=== PATIENT | female | born 1950 | race Caucasian/White ===

== ENCOUNTER → 2016-08-29 | Outpatient (CLI) | payer OTHER, MEDICARE | LOC: CIMAGING 14:41 | PROVIDERS: ATTEND Family Medicine | DX: R22.2 Localized swelling, mass and lump, trunk (principal); M41.86 Other forms of scoliosis, lumbar region; M51.36 Other intervertebral disc degeneration, lumbar region; M16.12 Unilateral primary osteoarthritis, left hip; Z98.1 Arthrodesis status | CPT/HCPCS: 72100-PO ==

== ENCOUNTER 2016-09-29 06:41 | Day surgery (SDC) | payer OTHER, MEDICARE ==
[~2016-09-29 06:41] MED LIST: CLINDAMYCIN 900 MG/DEXTROSE 50 ML IV ONE; LIDOCAINE 1% 2 ML INJ ONE; LR 1,000 ML IV SCH
--- NOTE | 2016-09-29 07:11 | PDHPUP ---
History & Physical Update H&P update statement: This history and physical update is based on an assessment of the patient which was completed after admission or registration (within 24 hours), but prior to the surgery/procedure.
[2016-09-29] MEDS ORDERED: ONDANSETRON DISINTEGRATING 4 MG TAB PO PRN (07:13)
[2016-09-29] MEDS ORDERED: HYDROCODONE/APAP 5/325 TAB PO PRN (07:13)
[2016-09-29] MEDS ORDERED: BUPIVACAINE 0.5% 30 ML SDV ONE (07:43)
[2016-09-29] MEDS ORDERED: LIDOCAINE 1% 5 ML SDV ID PRN (07:43)
[2016-09-29] MEDS ORDERED: MIDAZOLAM 2 MG/2 ML VIAL IVP ONE (08:06)
--- NOTE | 2016-09-29 08:08 | PDANEPAE ---
ANE History of Present Illness Pt presents for surgery. ANE Past Medical History - Cardiovascular History Hx Hypertension: No Hx Arrhythmias: No Hx Chest Pain: No Hx Coronary Artery / Peripheral Vascular Disease: No Hx CHF / Valvular Disease: No Hx Palpitations: No - Pulmonary History Hx COPD: No Hx Asthma/Reactive Airway Disease: No Hx Recent Upper Respiratory Infection: No Hx Oxygen in Use at Home: No - Neurologic History Hx Cerebrovascular Accident: No Hx Seizures: No Hx Dementia: No - Endocrine History Hx Diabetes: No - Renal History Hx Renal Disorders: No - Liver History Hx Hepatic Disorders: No - Neurological & Psychiatric Hx Hx Neurological and Psychiatric Disorders: Yes - Cancer History Hx Cancer: No - Congenital Disorder History Hx Congenital Disorders: No - GI History Hx Gastrointestinal Disorders: No - Chronic Pain History Chronic Pain: Yes (BACK PAIN) ANE Review of Systems - Exercise capacity Exercise capacity: >=4 METS METS (RN): 4 METS ANE Patient History - Allergies Allergies/Adverse Reactions: Penicillins Allergy (Intermediate, Verified 12/23/12 08:11) Rash - Home Medications Home Medications: Ibuprofen 800 mg PO BID 12/22/12 [Last Taken 09/28/16 09:00] Duloxetine HCl 09/28/16 [Last Taken 09/22/16 06:00] - NPO status NPO Since - Liquids (Date): 09/28/16 NPO Since - Liquids (Time): 22:00 NPO Since - Solids (Date): 09/28/16 NPO Since - Solids (Time): 17:00 - Smoking Hx Smoking Status: Former smoker - Family Anes Hx Family Hx Anesthesia Complications: NEG ANE Labs/Vital Signs - Vital Signs Blood Pressure: 147/102 Heart Rate: 96 Respiratory Rate: 18 O2 Sat (%): 84 Height: 167.64 cm Weight: 90.718 kg ANE Physical Exam - Airway Neck exam: FROM Mallampati Score: Class 2 Mouth exam: small mouth opening - Pulmonary Pulmonary: no respiratory distress - Cardiovascular Cardiovascular: regular rate and rhythym - ASA Status ASA Status: II ANE Anesthesia Plan Anesthesia Plan: general endotracheal anesthesia (RBA discussed.)
[2016-09-29] MEDS ORDERED: DEXAMETHASONE 4 MG/ML VIAL ONE (08:12)
[2016-09-29] MEDS ORDERED: PROPOFOL 200 MG/20 ML VIAL ONE (08:12)
[2016-09-29] MEDS ORDERED: ROCURONIUM 50 MG/5 ML VIAL ONE (08:12)
[2016-09-29] MEDS ORDERED: fentaNYL 100 MCG/2 ML INJ ONE ×3 (08:12→09:55)
[2016-09-29] MEDS ORDERED: SUCCINYLCHOLINE CHLORIDE*ANESTHESIA ONLY*200 MG/10 ML SYR IVP ONE (08:12)
[2016-09-29] MEDS ORDERED: ONDANSETRON 4 MG/2 ML VIAL ONE (08:13)
[2016-09-29] MEDS ORDERED: PROMETHAZINE HCL 25 MG/ML INJ IVP PRN (09:04)
[2016-09-29] MEDS ORDERED: NALOXONE HCL 0.4 MG/ML INJ IVP PRN (09:04)
[2016-09-29] MEDS ORDERED: OXYCODONE/APAP 5/325 TAB PO PRN (09:04)
[2016-09-29] MEDS ORDERED: ACETAMINOPHEN 500 MG TAB PO PRN (09:04)
[2016-09-29] MEDS ORDERED: SUGAMMADEX SODIUM 200 MG/2 ML VIAL IVP ONE (09:22)
[2016-09-29] MEDS ORDERED: LABETALOL HCL 5 MG/ML 20 ML MDV IVP PRN (09:55)
[2016-09-29] MEDS: fentaNYL 100 MCG/2 ML INJ IVP PRN ×2 (09:56→10:02)
--- NOTE | 2016-09-29 09:56 | POSTANESTH ---
Post Anesthetic Evaluation Cardiovascular Status: Normal, Stable Respiratory Status: Normal, Stable Level of Consciousness/Mental Status: Can Participate in Eval Pain Control: Adequate, Prn Tx Ordered Nausea/Vomiting Control: Adequate, Prn Tx Ordered Complications Possibly Related to Anesthesia: None Noted
[2016-09-29 10:19] VITALS: PULSE 85
[2016-09-29 10:30] VITALS: RESP 16
[2016-09-29 10:41] VITALS: TEMP 97.7
[2016-09-29 11:09] VITALS: BP 125/83; O2SAT 97
--- NOTE | 2016-09-29 12:42 | POSTOPPROG ---
Post Op Note Date of Operation: 09/29/16 Surgeon: Heber Whitehead Lithographic Proofer: Thomas Diaz Anesthesiologist: Dr Melton Anesthesia: GET(General Endotracheal) Pre-op Diagnosis: back mass Post-op Diagnosis: same Indication: pain Procedure: excision of back mass Findings: mass extending into hardware with significant fluid Inf/Abcess present in the surg proc area at time of surgery?: No EBL: 50-100 Drains: Luisito Ty Specimen(s): capsule, cultures taken
== END 2016-09-29 11:29 | disposition home or self-care (01) ==
LOC: FSGY 06:41
PROVIDERS: ATTEND Surgery
PROC: 0JB70ZX Excision of Back Subcutaneous Tissue and Fascia, Open Approach, Diagnostic (ICD-10-PCS; principal; 2016-09-29 08:15)
DX: M71.38 Other bursal cyst, other site (principal)
CPT/HCPCS: J0330; J1100; J2250; J2405; J2704; J3010

== ENCOUNTER 2016-11-10 10:19 | Inpatient (IN) | payer OTHER, MEDICARE ==
[2016-11-10 12:20] LABS: % IMMATURE GRANULYOCYTES 0.2 % (0.0-1.1); ABSOLUTE IMMATURE GRANULOCYTES 0.01 10^3/uL (0.00-0.10); ADD DIFF? NO; ADD MORPH? NO; ADD SCAN? NO; ATYPICAL LYMPHOCYTE FLAG 10 (0-99); FRAGMENT RBC FLAG 0 (0-99); HEMATOCRIT 48.7 % (38.0-47.0); HEMOGLOBIN 15.7 g/dL (12.6-16.3); LEFT SHIFT FLG 0 (0-99); LIPEMIA HEMOLYSIS FLAG 80 (0-99); MEAN CELL HEMOGLOBIN 27.6 pg (27.9-34.1); MEAN CELL HEMOGLOBIN CONCENTR. 32.2 g/dL (32.4-36.7); MEAN CELL VOLUME 85.6 fL (81.5-99.8); MEAN PLATELET VOLUME 11.7 fL (8.7-11.7); PLATELET CLUMPS FLAG 0 (0-99); PLATELET COUNT 200 10^3/uL (150-400); RED BLOOD CELL COUNT 5.69 10^6/uL (4.18-5.33); RED CELL DISTRIBUTION WIDTH 14.8 % (11.5-15.2)
--- NOTE | 2016-11-10 12:40 | EDPHY ---
H & P Stated Complaint: surgical incision pain/swelling increasing last few days Time Seen by Provider: 11/10/16 11:17 HPI/ROS: CHIEF COMPLAINT: Back pain HISTORY OF PRESENT ILLNESS: 66-year-old female presents emergency department with worsening low back pain. Patient had a lumbar fusion with hardware in 1989 , she developed an infected seroma and had it drained surgically by Dr. Whitehead 1 month ago. Patient has been seeing Dr. Paniagua. He sent her to see Infectious Disease 2 weeks ago. They placed her on doxycycline. Patient reports Paco-Tahir was out of this so she did not started until 1 week ago. Patient reports no pain initially after surgery, she says over the last week she has had increased pain in her low back, worse with movement, worse with standing. Patient denies fevers or chills, no loss of control of her bowel or bladder, no saddle anesthesias, no leg weakness. REVIEW OF SYSTEMS: A comprehensive 10 point review of systems is otherwise negative aside from elements mentioned in the history of present illness. Source: Patient, Old records Exam Limitations: No limitations - Personal History Current Tetanus/Diphtheria Vaccine: Yes Current Tetanus Diphtheria and Acellular Pertussis (TDAP): Yes Tetanus Vaccine Date: 2009 - Medical/Surgical History Hx Asthma: No Hx Chronic Respiratory Disease: No Hx Diabetes: No Hx Cardiac Disease: No Hx Renal Disease: No Hx Cirrhosis: No Hx Alcoholism: No Hx HIV/AIDS: No Hx Splenectomy or Spleen Trauma: No Other PMH: Lumbar fusion, mass removed near lumbar fusion, R hip replacement - Social History Smoking Status: Former smoker - Physical Exam Exam: Physical Exam Gen: Alert and Oriented, NAD HEENT: PERRL, moist mucous membranes NECK: no meningismus CV: regular rate and regular rhythm PULM: CTAB, no wheezes ABDOMEN: soft, non tender to palpation, BS present BACK: Midline lumbar incision clothes, no drainage, no erythema, fluctuance noted under incision NEURO: Neurologically grossly intact EXTREMITIES: normal appearing SKIN: no rash or break in skin on exposed skin PSYCH: answers questions appropriately. Constitutional: Initial Vital Signs Temperature (C) 36.5 C 11/10/16 10:25 Heart Rate 71 11/10/16 10:25 Respiratory Rate 17 11/10/16 10:25 Blood Pressure 173/95 H 11/10/16 10:25 O2 Sat (%) 94 11/10/16 10:25 O2 Delivery Mode Room Air Allergies/Adverse Reactions: Penicillins Allergy (Intermediate, Verified 11/10/16 10:25) Rash Home Medications: Medication Instructions Recorded Ibuprofen 800 mg PO BID 12/22/12 Duloxetine HCl 09/28/16 Doxycycline Calcium 11/10/16 Medical Decision Making ED Course/Re-evaluation: IV established, CBC, chemistry panel, blood cultures, CRP ordered. Neurosurgery PA is down seeing patient, plan is to take her to the operating room now with Dr. Richmond - Data Points Laboratory Results: Laboratory Results 11/10/16 11:31 11/10/16 11/10/16 11:31 11:31 WBC 5.35 10^3/uL 10^3/uL (3.80-9.50) RBC 5.69 10^6/uL H 10^6/uL (4.18-5.33) Hgb 15.7 g/dL g/dL (12.6-16.3) Hct 48.7 % H % (38.0-47.0) MCV 85.6 fL fL (81.5-99.8) MCH 27.6 pg L pg (27.9-34.1) MCHC 32.2 g/dL L g/dL (32.4-36.7) RDW 14.8 % % (11.5-15.2) Plt Count 200 10^3/uL 10^3/uL (150-400) MPV 11.7 fL fL (8.7-11.7) Neut % (Auto) 58.3 % % (39.3-74.2) Lymph % (Auto) 27.1 % % (15.0-45.0) Quay % (Auto) 7.3 % % (4.5-13.0) Eos % (Auto) 5.6 % % (0.6-7.6) Baso % (Auto) 1.5 % % (0.3-1.7) Nucleat RBC Rel Count 0.0 % % (0.0-0.2) Absolute Neuts (auto) 3.12 10^3/uL 10^3/uL (1.70-6.50) Absolute Lymphs (auto) 1.45 10^3/uL 10^3/uL (1.00-3.00) Absolute Monos (auto) 0.39 10^3/uL 10^3/uL (0.30-0.80) Absolute Eos (auto) 0.30 10^3/uL 10^3/uL (0.03-0.40) Absolute Basos (auto) 0.08 10^3/uL 10^3/uL (0.02-0.10) Absolute Nucleated RBC 0.00 10^3/uL 10^3/uL (0-0.01) Immature Gran % 0.2 % % (0.0-1.1) Immature Gran # 0.01 10^3/uL 10^3/uL (0.00-0.10) Sodium Pending Potassium Pending Chloride Pending Carbon Dioxide Pending Anion Gap Pending BUN Pending Creatinine Pending Estimated GFR Pending Glucose Pending Calcium Pending C-Reactive Protein Pending Departure - Departure Disposition: To OP Cath/Surgery Clinical Impression: Wound infection complicating hardware Qualifiers: Encounter type: initial encounter Qualified Code(s): T84.7XXA - Infection and inflammatory reaction due to other internal orthopedic prosthetic devices, implants and grafts, initial encounter Condition: Fair Referrals: Yuni Jackson MD [Primary Care Provider] - As per Instructions
[2016-11-10 13:36] LABS: ANION GAP 12 mEq/L (8-16); CALCIUM 8.8 mg/dL (8.5-10.4); CARBON DIOXIDE 21 mEq/l (22-31); CHLORIDE 112 mEq/L (97-110); CREATININE 0.6 mg/dL (0.6-1.0); GLOMERULAR FILTRATION RATE > 60; GLUCOSE 81 mg/dL (70-100); POTASSIUM 4.6 mEq/L (3.5-5.2); SODIUM 145 mEq/L (134-144)
--- NOTE | 2016-11-10 14:16 | GHP ---
[f rep st] PREOP HISTORY AND PHYSICAL DATE OF ADMISSION: 11/10/2016 CHIEF COMPLAINT: Back pain. HISTORY OF PRESENT ILLNESS: The patient is a 66-year-old female who underwent an L4-S2 instrumentat ion and fusion by Dr. Matos in 1993. There were no complications with the surgery. In early 2016, s he developed worsening back pain and a fluid collection. She was taken the operating room by Dr. Celina guerra, where she was found to have some lumbosacral paraspinal abscess. Cultures were taken that show ed Propionibacterium acnes. She was treated with originally Keflex and was switched to doxycycline per Infectious Disease. She presented to the emergency department today with worsening back pain. She describes pain in her low back with a worsening fluid collection. This is not associated with a ny leg pain, weakness, paresthesias, ataxia, or bowel or bladder problems. She has not had fevers o r chills. PAST MEDICAL HISTORY: 1. Osteoarthritis. 2. Depression. CURRENT MEDICATIONS: Cymbalta. PAST SURGICAL HISTORY: Includes: 1. Lumbar fusion. 2. Evacuation of paraspinal abscess. ALLERGIES: Penicillin which causes a rash. FAMILY HISTORY: Patient has no family history of spine problems. SOCIAL HISTORY: Patient is with grown children. She does not smoke, does drink alcohol soc ially, and denies recreational drug use. REVIEW OF SYSTEMS: Negative. PHYSICAL EXAM: GENERAL: Patient is a 66-year-old female lying in bed, in no apparent distress. HE ENT: Head, eyes, ears, nose, and throat are negative for drainage. EXTREMITIES: Calion, warm, and d ry. NEUROLOGICAL: Patient is awake, alert, oriented x4. Pupils equal, round, reactive to light. Extraocular motions are intact. There is no evidence of facial droop. Tongue and uvula are midline . Spinal accessory muscles are intact. Her motor strength is 5/5 in her arms and legs. Her sensat ion is grossly intact to light touch in her arms and legs. Deep tendon reflexes are 1+/4 in the yolanda ateral biceps, triceps, brachioradialis, patellar, and Achilles. There is a negative Prieto's wit h no clonus. SKIN: She has a palpable fluid collection near the inferior portion of her incision n ear the upper portion of her sacrum. DIAGNOSTIC STUDIES: CBC from [facility] on 11/10/2016 shows a white blood cell coun t of 5.35, hemoglobin of 15.7, and platelet count of 200. A CT scan from [facility] on 11/09/2016 shows postoperative changes from her previous L4-S2 instrumentation and fusion. There is a significant amount of metallic artifact from the hardware. There is evidence of a posterior paraspinal fluid collection dorsal from L4 down through approximate ly S2-3. This is suspicious for a paraspinal abscess. IMPRESSION: This is a 66-year-old female with a history of a previous Propionibacterium acnes anh ester abscess with worsening low back pain and a CT scan from 10/10/2016 that shows a postoperative paraspinal fluid collection suspicious for an abscess. She is neurologically stable. PLAN: All the above discussed in detail with the patient, her , and daughter. This patient was seen and examined by Dr. Paniagua in the emergency department. At this point in time, in l ight of her worsening back pain and her imaging findings consistent with a paraspinal abscess, we re commended that she consider surgical removal of her hardware with evacuation of the paraspinal absce ss. The risks of surgery include, but are not limited to bleeding, infection, neurological injury, cerebrospinal fluid leak, vascular injury, and the risk of ongoing symptoms postoperatively. She is set up with the appropriate presurgical paperwork and all questions are answered in detail. We jersey madden keep her n.p.o. and plan for surgical removal of her hardware this afternoon with evacuation of he r abscess. Please call with any neurological changes. /[id number]/MODL
[2016-11-10] MEDS ORDERED: MIDAZOLAM 2 MG/2 ML VIAL ONE (16:16)
[2016-11-10] MEDS ORDERED: MIDAZOLAM 2 MG/2 ML VIAL IVP ONE (16:18)
--- NOTE | 2016-11-10 16:18 | PDANEPAE ---
ANE History of Present Illness Patient presents for hardware removal and back I and D. ANE Past Medical History - Cardiovascular History Hx Hypertension: No Hx Arrhythmias: No Hx Chest Pain: No Hx Coronary Artery / Peripheral Vascular Disease: No Hx CHF / Valvular Disease: No Hx Palpitations: No - Pulmonary History Hx COPD: No Hx Asthma/Reactive Airway Disease: No Hx Recent Upper Respiratory Infection: No Hx Oxygen in Use at Home: No Hx Sleep Apnea: No - Neurologic History Hx Cerebrovascular Accident: No Hx Seizures: No Hx Dementia: No - Endocrine History Hx Diabetes: No - Renal History Hx Renal Disorders: No - Liver History Hx Hepatic Disorders: No - Neurological & Psychiatric Hx Hx Neurological and Psychiatric Disorders: Yes Neurological / Psychiatric History Comment: ANXIETY & DEPRESSION - Cancer History Hx Cancer: No - Congenital Disorder History Hx Congenital Disorders: No - GI History Hx Gastrointestinal Disorders: No - Other Health History Other Health History: NEG - Chronic Pain History Chronic Pain: Yes (BACK PAIN) - Surgical History Prior Surgeries: R JONY 1994. SPINAL FUSION 1993. HIP SURG CHILDHOOD ANE Review of Systems - Exercise capacity Exercise capacity: >=4 METS ANE Patient History - Allergies Allergies/Adverse Reactions: Penicillins Allergy (Intermediate, Verified 11/10/16 10:25) Rash - Home Medications Home medications: home medication list seen and reviewed Home Medications: DULoxetine [Cymbalta 60 MG (*)] 60 mg PO DAILY #0 09/28/16 [Last Taken 11/10/16 ] Cholecalciferol Vit D3 [Vitamin D3 (*)] 5,000 units PO Q3D 11/10/16 [Last Taken 11/08/16] Doxycycline Hyclate [Vibramycin 100 MG (*)] 100 mg PO DAILY 11/10/16 [Last Taken 11/09/16] Ibuprofen [Motrin (*)] 800 mg PO BID PRN 11/10/16 [Last Taken 11/09/16 09:00] - NPO status NPO Status: no food or drink >8 hours NPO Since - Liquids (Date): 11/10/16 NPO Since - Liquids (Time): 08:30 NPO Since - Solids (Date): 11/09/16 - Anes Hx Anes Hx: no prior problems - Smoking Hx Smoking Status: Former smoker - Family Anes Hx Family Hx Anesthesia Complications: NEG ANE Labs/Vital Signs - Labs Result Diagrams: 11/10/16 11:31 11/10/16 13:10 - Vital Signs Blood Pressure: 159/96 Heart Rate: 71 Respiratory Rate: 18 O2 Sat (%): 93 Height: 167.64 cm Weight: 90.718 kg ANE Physical Exam - Airway Neck exam: FROM Mallampati Score: Class 2 Mouth exam: dentures - Pulmonary Pulmonary: no respiratory distress - Cardiovascular Cardiovascular: regular rate and rhythym - ASA Status ASA Status: II ANE Anesthesia Plan Anesthesia Plan: general endotracheal anesthesia (RBA discussed)
[2016-11-10] MEDS ORDERED: fentaNYL 100 MCG/2 ML INJ ONE (16:22)
[2016-11-10] MEDS ORDERED: PROPOFOL 200 MG/20 ML VIAL ONE (16:24)
[2016-11-10] MEDS ORDERED: PROPOFOL/EMULSION 500 MG/50 ML BOTTLE IV ONE (16:24)
[2016-11-10] MEDS ORDERED: HYDROmorphONE/DILAUDID 2 MG/ML INJ ONE (16:58)
[2016-11-10] MEDS ORDERED: ROCURONIUM 50 MG/5 ML VIAL ONE (16:58)
[2016-11-10] MEDS ORDERED: PHENYLEPHRINE HCL 100 MCG/ML SYR ONE (17:04)
[2016-11-10] MEDS ORDERED: DEXAMETHASONE 4 MG/ML VIAL ONE (17:20)
[2016-11-10] MEDS ORDERED: ONDANSETRON 4 MG/2 ML VIAL ONE (17:20)
[2016-11-10] MEDS ORDERED: VANCOMYCIN 1.5 GM in D5W 250 ML IV ONE (17:30)
[2016-11-10] MEDS ORDERED: fentaNYL 100 MCG/2 ML INJ IVP PRN (17:36)
[2016-11-10] MEDS ORDERED: LR 500 ML IV PRN (17:36)
[2016-11-10] MEDS ORDERED: HYDROmorphONE/DILAUDID 1 MG/ML SYR IVP PRN (17:36)
[2016-11-10] MEDS ORDERED: NALOXONE HCL 0.4 MG/ML INJ IVP PRN ×2 (17:36→18:41)
[2016-11-10] MEDS ORDERED: ONDANSETRON 4 MG/2 ML VIAL IVP PRN ×2 (17:36→18:41)
[2016-11-10] MEDS ORDERED: epHEDrine SULFATE 10 MG/ML SYR ONE ×2 (18:13)
[2016-11-10] MEDS ORDERED: SUGAMMADEX SODIUM 200 MG/2 ML VIAL IVP ONE (18:13)
[2016-11-10] MEDS ORDERED: MAGNESIUM HYDROXIDE 30 ML UDCUP PO PRN (18:41)
[2016-11-10] MEDS ORDERED: METHOCARBAMOL 750 MG TAB PO PRN (18:41)
[2016-11-10] MEDS ORDERED: ONDANSETRON DISINTEGRATING 4 MG TAB PO PRN (18:41)
[2016-11-10] MEDS ORDERED: LACTULOSE 20 GM/30 ML UDCUP PO PRN (18:41)
[2016-11-10] MEDS ORDERED: morphINE PCA 30 MG/30 ML PCA IV PRN (18:41)
[2016-11-10] MEDS ORDERED: diphenhydrAMINE 25 MG CAP PO PRN (18:41)
[2016-11-10] MEDS ORDERED: BISACODYL 10 MG SUPP PR PRN (18:41)
[2016-11-10] MEDS ORDERED: NS 1,000 ML IV SCH (18:45)
--- NOTE | 2016-11-10 18:46 | SOAPPROG ---
SOAP Progress Note Assessment/Plan: Assessment: 66 yo F sp L4-S2 hardware removal and incision/drainage of paraspinal abscess Plan: stable on vanco/ancef PT/OT Giovani x 1 ID consult in am please call with neuro changes 11/10/16 18:44 Subjective: + back pain, no leg pain. Objective: Vital Signs Temp Pulse Resp BP Pulse Ox 36.1 C 71 18 159/96 H 93 11/10/16 12:56 11/10/16 16:17 11/10/16 16:17 11/10/16 16:17 11/10/16 16:17 Laboratory Results 11/10/16 13:10 somnolent PERRL, no facial droop PARUL x 4 + light touch ICD10 Worksheet Patient Problems: Problems Problem Status Onset Wound infection complicating hardware Acute
--- NOTE | 2016-11-10 18:57 | GOP ---
[f rep st] OPERATIVE REPORT DATE OF OPERATION: 11/10/2016 SURGEON: Erlin Paniagua MD MILL SET UP: ORALIA Golden. ANESTHESIA: General endotracheal. PREOPERATIVE DIAGNOSIS: Deep lumbar spine abscess/wound infection. Status post prior multilevel po sterior segmental instrumented fusion. POSTOPERATIVE DIAGNOSIS: Deep lumbar spine abscess/wound infection. Status post prior multilevel p osterior segmental instrumented fusion. PROCEDURE PERFORMED: 1. Removal of posterior segmental instrumentation from approximately L4 to S2. 2. Incision and drainage of deep lumbar wound infection/abscess. FINDINGS: ESTIMATED BLOOD LOSS: 200 cc INDICATIONS: The patient is a 66-year-old woman who presented with a lump on her back to Dr. David Whitehead, who incised the lump, saw a cyst to drain, and found a pus pocket communicating with lumbar hardware. He referred her to me and after a detailed discussion with the infectious disease folks and Dr. Whitehead, and the patient, we felt that it was in her best interest to re-drain the abscess and remove all the hardware. DESCRIPTION OF PROCEDURE: After informed consent was obtained, the patient was taken to the operati ng room and placed in the prone position on Luisito table. The lumbosacral area was prepped and tamera ped in a sterile fashion. After fluoroscopic localization of the correct level, the subcutaneous an d intramuscular tissues were infiltrated with local anesthesia. A midline linear incision was then created from approximately L4 through S2. This was carried down to the fascial layer, which was the n incised using monopolar electrocautery and carried in a subperiosteal plane along the spinous proc esses, the top of the construct and down to the lamina. Note that a very large pocket of serosangui neous fluid was identified at the inferior aspect of the hardware, communicating with the hardware a nd it was under great pressure, and when it was incised, it squirted approximately a [id number] into the air. The area was copiously irrigated with antibiotic irrigation and debrided, and the in strumentation was painstakingly removed, piece by piece. All of the connections were very archaic a nd needed to be taken apart, piece by piece, and the wyatt needed to be severed in multiple places. S ome of these places we could get to with a door cutter, but some of them required a wyatt-cutting bur. Eventually, we were able to remove every piece of hardware which was confirmed on fluoroscopy, and t he wound was copiously irrigated with antibiotic irrigation and debrided. A drain was then placed a nd the wound was closed in a layered fashion using interrupted Vicryl sutures followed by Steri-Stri ps on the skin. COMPLICATIONS: None. DISPOSITION: The patient is currently in the process of being repositioned for extubation. /[id number]/MODL
[2016-11-10 19:55] VITALS: RESP 16
[2016-11-10] MEDS ORDERED: CEFEPIME HCL 2 GM in D5W 100 ML IV SCH (21:00)
[2016-11-10] MEDS: FAMOTIDINE 20 MG TAB PO SCH (21:36)
[2016-11-10] MEDS: SENNOSIDES/DOCUSATE SODIUM TAB PO SCH (21:36)
[2016-11-10] MEDS: POLYETHYLENE GLYCOL 3350 17 GM PKT PO SCH (21:36)
[2016-11-10] MEDS: ACETAMINOPHEN 500 MG TAB PO SCH (21:36)
[2016-11-11] MEDS: oxyCODONE IR 5 MG TAB PO PRN ×4 (03:52→17:04)
[2016-11-11 04:53] LABS: % IMMATURE GRANULYOCYTES 0.2 % (0.0-1.1); ABSOLUTE IMMATURE GRANULOCYTES 0.02 10^3/uL (0.00-0.10); ADD DIFF? NO; ADD MORPH? NO; ADD SCAN? NO; ATYPICAL LYMPHOCYTE FLAG 0 (0-99); FRAGMENT RBC FLAG 0 (0-99); HEMATOCRIT 42.4 % (38.0-47.0); HEMOGLOBIN 13.7 g/dL (12.6-16.3); LEFT SHIFT FLG 0 (0-99); LIPEMIA HEMOLYSIS FLAG 80 (0-99); MEAN CELL HEMOGLOBIN 27.8 pg (27.9-34.1); MEAN CELL HEMOGLOBIN CONCENTR. 32.3 g/dL (32.4-36.7); MEAN PLATELET VOLUME 11.7 fL (8.7-11.7); PLATELET CLUMPS FLAG 0 (0-99); PLATELET COUNT 197 10^3/uL (150-400); RED BLOOD CELL COUNT 4.93 10^6/uL (4.18-5.33); RED CELL DISTRIBUTION WIDTH 14.6 % (11.5-15.2)
[2016-11-11 05:10] LABS: ANION GAP 10 mEq/L (8-16); CALCIUM 9.2 mg/dL (8.5-10.4); CARBON DIOXIDE 20 mEq/l (22-31); CHLORIDE 109 mEq/L (97-110); CREATININE 0.6 mg/dL (0.6-1.0); GLOMERULAR FILTRATION RATE > 60; GLUCOSE 144 mg/dL (70-100); POTASSIUM 4.6 mEq/L (3.5-5.2); SODIUM 139 mEq/L (134-144)
[2016-11-11] MEDS: ACETAMINOPHEN 500 MG TAB PO SCH ×3 (05:13→21:42)
--- NOTE | 2016-11-11 07:33 | SOAPPROG ---
SOAP Progress Note Assessment/Plan: Assessment: 66 yo female POD #1 sp hardware removal L4-S2 with I&D of abscess doing well this AM, pain well controlled currently on Vanco and Maxipime neuro stable Plan: ID to consult this AM for Abx recommendations PT/OT Continue LOTUS to bulb suction 11/11/16 07:30 Subjective: awake, alert, pain controlled denies numbness tingling or weakness Objective: Vital Signs Temp Pulse Resp BP Pulse Ox 36.7 C 81 16 114/76 94 11/11/16 03:36 11/11/16 03:36 11/11/16 03:36 11/11/16 03:36 11/11/16 03:36 Laboratory Results 11/11/16 04:16 11/11/16 04:16 11/10/16 11/11/16 11/12/16 05:59 05:59 05:59 Intake Total 1000 Output Total 435 Balance 565 Neuro: SPANGLER, sens +LT dressing: slightly saturated at the top LOTUS: 210ML ICD10 Worksheet Patient Problems: Problems Problem Status Onset Wound infection complicating hardware Acute
[2016-11-11] MEDS ORDERED: ALTEPLASE 2 MG VIAL IVP PRN (09:51)
[2016-11-11] MEDS: FAMOTIDINE 20 MG TAB PO SCH ×2 (09:54→20:20)
[2016-11-11] MEDS: SENNOSIDES/DOCUSATE SODIUM TAB PO SCH ×2 (09:54→20:20)
[2016-11-11] MEDS: ENOXAPARIN 40 MG/0.4 ML SYR SC SCH (09:54)
[2016-11-11] MEDS: cefTRIAXone 2 GM in D5W 50 ML IV SCH (09:55)
[2016-11-11] MEDS: POLYETHYLENE GLYCOL 3350 17 GM PKT PO SCH ×3 (09:55→21:42)
[2016-11-11] MEDS: DULoxetine 60 MG CAP PO SCH (09:55)
--- NOTE | 2016-11-11 18:39 | PCMIDPN ---
Assessment/Plan: Assessment/Plan: * Deep lumbar infection status post incision and drainage and hardware removal: Prior cultures grew P. acnes and gram stain from operative specimens showing gram-positive wyatt suggestive of P. acnes. Feels better postoperatively. Continue ceftriaxone pending further culture data. Anticipate 6-8 week course of IV antibiotic therapy. Given hardware removal, should not require suppressive therapy post completion of IV ceftriaxone. Will place PICC line today - risks and benefits of PICC line and IV antibiotics were discussed with patient today. Time spent, greater than 35 minutes, of which greater than half was spent in education / counseling /coordination of care related to deep lumbar infection and plan of care. 11/11/16 18:36 11/11/16 18:44 Subjective: Patient seen previously by Dr. Egan for back abscess/ infected seroma due to P. acnes. This was present in the setting of hardware from fusion dating back many years. Patient was taking doxycycline for approximately 1 week as attempt at suppressing further infection. However, she developed increasing swelling and pain in her lumbar spine. She did not note fever or chills. She was taken to the operating room last p.m. where she was found to have a deep lumbar abscess which communicated with hardware. Hardware was fully removed. Gram stain from 2 of 3 specimen shows gram-positive rods. Patient is currently due to start ceftriaxone this a.m.. Please see Dr. Egan's [place] note dated 10/28/2016 for full details. Operative findings noted. Past medical/past surgical /social history/medications all reviewed. Allergies: Penicillin associated with rash Objective: Vital Signs Temp Pulse Resp BP Pulse Ox 36.7 C 78 16 112/73 93 11/11/16 16:34 11/11/16 16:34 11/11/16 16:34 11/11/16 16:34 11/11/16 16:34 Laboratory Results 11/11/16 04:16 11/11/16 04:16 11/10/16 11/11/16 11/12/16 05:59 05:59 05:59 Intake Total 1000 1500 Output Total 435 280 Balance 565 1220 C-Reactive Protein TNP 11/10/16 11:31 Gram stain 2/3 with Gram-positive rods - Physical Exam General Appearance: alert, no apparent distress EENT: No conjunctival petechiae Cardiac/Chest: regular rate, rhythm, No systolic murmur Extremities: No inflammation Abdomen: non-tender, No distended Back: other (Dressed postoperatively with blood dried on dressing and bloody output in LOTUS bulb) Skin: No embolic lesions ICD10 Worksheet Patient Problems: Problems Problem Status Onset Wound infection complicating hardware Acute
[2016-11-12] MEDS: ACETAMINOPHEN 500 MG TAB PO SCH (05:17)
[2016-11-12 07:19] VITALS: BP 109/80; PULSE 77; TEMP 97.9; O2SAT 96
[2016-11-12] MEDS: DULoxetine 60 MG CAP PO SCH (08:08)
[2016-11-12] MEDS: ENOXAPARIN 40 MG/0.4 ML SYR SC SCH (08:08)
[2016-11-12] MEDS: cefTRIAXone 2 GM in D5W 50 ML IV SCH (08:09)
[2016-11-12] MEDS: FAMOTIDINE 20 MG TAB PO SCH (08:09)
[2016-11-12] MEDS: POLYETHYLENE GLYCOL 3350 17 GM PKT PO SCH (08:09)
[2016-11-12] MEDS: SENNOSIDES/DOCUSATE SODIUM TAB PO SCH (08:09)
--- NOTE | 2016-11-12 08:44 | NEUSURGPN ---
Date of Surgery: 11/10/16 Post Op Day: 2 Assessment/Plan: Assessment: 66 yo female POD #2 sp hardware removal L4-S2 with I&D of abscess Plan: Ok to discharge home per neurosurgery Defer to ID for outpatient antbiotic recommendations Blood cultures pending PT/OT Continue LOTUS to bulb suction-leave drain in Patient to follow up next week with Dr Paniagua to assess drain Subjective: Patient doing well this morning, sitting in chair Objective: SPANGLER, sens +LT 5/5 BUE, BLE dressing: slightly saturated at the top LOTUS: 280 ML Neuro Check Frequency: per routine Urinary Catheter in Place: No - Physician Discussed Patient with : Ar[facility] Neurosurgery Physical Exam - Vitals, I&O, Labs I and O 11/11/16 11/12/16 11/13/16 05:59 05:59 05:59 Intake Total 1000 1500 Output Total 435 280 Balance 565 1220 Weight 90.718 kg Intake: Oral (ml) 1500 IV Intake (ml) 1000 Output: Urine (ml) 200 Toilet 200 Estimated Blood Loss (ml) 25 LOTUS Drain Output (ml) 210 280 Back 210 280 Other: Intake Quantity Yes Sufficient Number of Voids Toilet 1 Vital Signs Temp Pulse Resp BP Pulse Ox 36.6 C 77 16 109/80 96 11/12/16 07:17 11/12/16 07:17 11/12/16 07:17 11/12/16 07:17 11/12/16 07:17 Laboratory Results 11/11/16 04:16 11/11/16 04:16 ICD10 Worksheet Patient Problems: Problems Problem Status Onset Wound infection complicating hardware Acute
--- NOTE | 2016-11-30 10:05 | GDS ---
[f rep st] DISCHARGE SUMMARY ADMISSION DIAGNOSIS: Paraspinal fluid collection and possible abscess. DISCHARGE DIAGNOSIS: Status post removal of hardware from L4 to S2. HISTORY AND PHYSICAL: Please see admission history and physical. COURSE: Patient is a 66-year-old female, who underwent the previous L4 to S2 instrumentation and fusion approximately 20 years ago. She was found to have a paraspinal fluid collection earlier in 2017, and was taken to the operating room by Dr. Whitehead for incision and drainage of the fluid collection. Upon opening of that incision, her hardware was clearly visible. Her incision was then closed, and she presented for neurosurgical evaluation. Her cultures at that point time grew P acnes, and it was recommended that she consider removal of her hardware. She was taken to the operating room on 11/10/2016, where she underwent the removal of her L4 to S2 hardware. There were no intraoperative complications, and she was admitted to the floor for observation. On the floor , she was tolerating a regular diet, and her pain was controlled with p.o. pain medications. She was discharged home in stable condition on 11/12/2016. DISCHARGE INSTRUCTIONS: Patient was discharged with postoperative instructions. I recommended she follow up with Infectious Disease, as well as Neurosurgery, in approximately 1 to 2 weeks. /[id number]/MODL MTDD
== END 2016-11-12 12:14 | disposition home or self-care (01) | DRG 496 ==
LOC: F3N 19:42
PROVIDERS: ADMIT Neurological Surgery; ATTEND Neurological Surgery
PROC: 0J970ZZ Drainage of Back Subcutaneous Tissue and Fascia, Open Approach (ICD-10-PCS; principal; 2016-11-10)
PROC: 0SP30JZ Removal of Synthetic Substitute from Lumbosacral Joint, Open Approach (ICD-10-PCS; principal; 2016-11-10)
PROC: 02HV33Z Insertion of Infusion Device into Superior Vena Cava, Percutaneous Approach (ICD-10-PCS; 2016-11-11)
DX: T84.7XXA Infection and inflammatory reaction due to other internal orthopedic prosthetic devices, implants and grafts, initial encounter (principal); T81.4XXA Infection following a procedure, initial encounter; Z96.641 Presence of right artificial hip joint; Z87.891 Personal history of nicotine dependence; Z88.0 Allergy status to penicillin
CPT/HCPCS: 97116-GP; 97161-GP; 97165-GO; C1751; G8978-GP-CI; G8978-GP-CJ; G8979-GP-CI; G8980-GP-CI; G8987-GO-CI; G8988-GO-CH; J0696; J1100; J1170; J1650; J2250; J2370; J2405; J2704; J3010; J3370

== ENCOUNTER 2017-02-14 07:59 | Inpatient (IN) | payer OTHER, MEDICARE ==
[~2017-02-14 07:59] MED LIST changes: -CLINDAMYCIN 900 MG/DEXTROSE 50 ML IV ONE; -LIDOCAINE 1% 2 ML INJ ONE; -LR 1,000 ML IV SCH; +NS IV ONE; +POVIDONE-IODINE 20 ML in SODIUM CL IRRIG SOLUTION 500 ML IRR ONE; +ROPIVACAINE 0.2% 80 MG, EPINEPHrine 0.2 MG, KETOROLAC TROMETHAMINE 30 MG in BAG 0 ML IU ONE; +TRANEXAMIC ACID IV ONE
[2017-02-14] MEDS ORDERED: FAMOTIDINE 20 MG TAB PO ONE (08:41)
[2017-02-14] MEDS ORDERED: DEXAMETHASONE 4 MG/ML VIAL IVP ONE (08:41)
[2017-02-14] MEDS ORDERED: ceFAZolin 2 GM/SWFI 2 GM/20 ML SYR IVP ONE (08:41)
[2017-02-14] MEDS ORDERED: ACETAMINOPHEN 325 MG TAB PO ONE (08:41)
[2017-02-14] MEDS ORDERED: LIDOCAINE 1% 2 ML INJ ID PRN (08:42)
[2017-02-14] MEDS ORDERED: LR 1,000 ML IV ONE (08:42)
--- NOTE | 2017-02-14 09:22 | PDHPUP ---
History & Physical Update H&P update statement: This history and physical update is based on an assessment of the patient which was completed after admission or registration (within 24 hours), but prior to the surgery/procedure. H&P update: H&P reviewed & patient examined, no change in patient's condition since H&P completed
[2017-02-14] MEDS ORDERED: ceFAZolin 1 GM VIAL ONE (09:44)
[2017-02-14] MEDS ORDERED: MIDAZOLAM 2 MG/2 ML VIAL IVP ONE (09:51)
[2017-02-14] MEDS ORDERED: MIDAZOLAM 2 MG/2 ML VIAL ONE (09:51)
--- NOTE | 2017-02-14 09:51 | PDANEPAE ---
ANE History of Present Illness here for L JONY ANE Past Medical History - Cardiovascular History Hx Hypertension: No Hx Arrhythmias: No Hx Chest Pain: No Hx Coronary Artery / Peripheral Vascular Disease: No Hx CHF / Valvular Disease: No Hx Palpitations: No - Pulmonary History Hx COPD: No Hx Asthma/Reactive Airway Disease: No Hx Recent Upper Respiratory Infection: No Hx Oxygen in Use at Home: No Hx Sleep Apnea: No Sleep Apnea Screening Result - Last Documented: Negative - Neurologic History Hx Cerebrovascular Accident: No Hx Seizures: No Hx Dementia: No - Endocrine History Hx Diabetes: No - Renal History Hx Renal Disorders: No - Liver History Hx Hepatic Disorders: No - Neurological & Psychiatric Hx Hx Neurological and Psychiatric Disorders: Yes Neurological / Psychiatric History Comment: ANXIETY & DEPRESSION - Cancer History Hx Cancer: No - Congenital Disorder History Hx Congenital Disorders: No - GI History Hx Gastrointestinal Disorders: No - Other Health History Other Health History: wears upper denture - Chronic Pain History Chronic Pain: Yes (left hip) - Surgical History Prior Surgeries: 11/10/16 infected hardware removed with vvc. R JONY 1994. SPINAL FUSION 1993. HIP SURG CHILDHOOD ANE Review of Systems Review of systems is: negative Review of Systems: - Exercise capacity METS (RN): 4 METS ANE Patient History - Allergies Allergies/Adverse Reactions: Penicillins Allergy (Intermediate, Verified 02/06/17 11:32) Rash - Home Medications Home medications: home medication list seen and reviewed Home Medications: DULoxetine [Cymbalta 60 MG (*)] 60 mg PO DAILY #0 09/28/16 [Last Taken 02/14/17] Cholecalciferol Vit D3 [Vitamin D3 (*)] 5,000 units PO DAILY 11/10/16 [Last Taken 02/06/17] Ibuprofen [Motrin (*)] 800 mg PO BID PRN 11/10/16 [Last Taken 02/06/17] - NPO status NPO Status: no food or drink >8 hours NPO Since - Liquids (Date): 02/13/17 NPO Since - Liquids (Time): 22:00 NPO Since - Solids (Date): 02/13/17 NPO Since - Solids (Time): 17:00 - Anes Hx Anes Hx: no prior problems - Smoking Hx Smoking Status: Former smoker - Family Anes Hx Family Hx Anesthesia Complications: none ANE Labs/Vital Signs - Vital Signs Blood Pressure: 128/93 Heart Rate: 74 Respiratory Rate: 16 O2 Sat (%): 96 Height: 167.64 cm Weight: 90.718 kg ANE Physical Exam - Airway Neck exam: FROM Mallampati Score: Class 1 Mouth exam: dentures - Pulmonary Pulmonary: no respiratory distress - Cardiovascular Cardiovascular: regular rate and rhythym - ASA Status ASA Status: II ANE Anesthesia Plan Anesthesia Plan: general endotracheal anesthesia
[2017-02-14] MEDS ORDERED: PROPOFOL/EMULSION 500 MG/50 ML BOTTLE IV ONE (09:54)
[2017-02-14] MEDS ORDERED: ROCURONIUM 100 MG/10 ML VIAL ONE (09:56)
[2017-02-14] MEDS ORDERED: fentaNYL 100 MCG/2 ML INJ ONE ×3 (09:57→12:27)
[2017-02-14] MEDS ORDERED: HYDROmorphONE/DILAUDID 2 MG/ML INJ ONE (10:25)
[2017-02-14] MEDS ORDERED: ALBUTEROL 3 ML DEYVIAL IH PRN (10:28)
[2017-02-14] MEDS ORDERED: NALOXONE HCL 0.4 MG/ML INJ IVP PRN (10:28)
[2017-02-14] MEDS ORDERED: PROMETHAZINE HCL 25 MG/ML INJ IVP PRN ×2 (10:28→11:37)
[2017-02-14] MEDS ORDERED: DEXAMETHASONE 4 MG/ML VIAL IVP PRN (10:28)
[2017-02-14] MEDS ORDERED: SUGAMMADEX SODIUM 200 MG/2 ML VIAL IVP ONE (11:13)
--- NOTE | 2017-02-14 11:21 | POSTOPPROG ---
Post Op Note Date of Operation: 02/14/17 Surgeon: Thomas Oneil High Voltage Electrician: Ronda Grady Anesthesiologist: Dr. Elmer Vasquez Anesthesia: GET(General Endotracheal) Post-op Diagnosis: Left hip advanced degenerative arthritis. Procedure: Left total hip arthroplasty Inf/Abcess present in the surg proc area at time of surgery?: No EBL: 100-500
[2017-02-14] MEDS ORDERED: ONDANSETRON DISINTEGRATING 4 MG TAB PO PRN (11:37)
[2017-02-14] MEDS ORDERED: BISACODYL 10 MG SUPP PR PRN (11:37)
[2017-02-14] MEDS ORDERED: DIPHENOXYLATE/ATROPINE LOMOTIL 1 TAB PO PRN (11:37)
[2017-02-14] MEDS ORDERED: oxyCODONE IR 5 MG TAB PO PRN (11:37)
[2017-02-14] MEDS ORDERED: TEMAZEPAM 15 MG CAP PO PRN (11:37)
[2017-02-14] MEDS ORDERED: LACTULOSE 20 GM/30 ML UDCUP PO PRN (11:37)
[2017-02-14] MEDS ORDERED: ONDANSETRON 4 MG/2 ML VIAL IVP PRN (11:37)
[2017-02-14] MEDS ORDERED: POLYETHYLENE GLYCOL 3350 17 GM PKT PO PRN (11:37)
[2017-02-14] MEDS ORDERED: diphenhydrAMINE 25 MG CAP PO PRN (11:37)
[2017-02-14] MEDS ORDERED: NS 500 ML IV PRN (11:37)
[2017-02-14] MEDS ORDERED: KETOROLAC 30 MG/1 ML SDV IVP PRN (11:37)
[2017-02-14] MEDS ORDERED: MAGNESIUM HYDROXIDE 30 ML UDCUP PO PRN (11:37)
[2017-02-14] MEDS ORDERED: PROMETHAZINE HCL 25 MG SUPPR PR PRN (11:37)
[2017-02-14] MEDS ORDERED: HYDROmorphONE/DILAUDID 1 MG/ML INJ ONE ×3 (11:49→12:52)
[2017-02-14] MEDS: HYDROmorphONE/DILAUDID 1 MG/ML INJ IVP PRN ×7 (11:52→13:16)
[2017-02-14] MEDS: fentaNYL 100 MCG/2 ML INJ IVP PRN ×4 (11:57→12:45)
[2017-02-14] MEDS ORDERED: LR 1,000 ML IV SCH (12:00)
[2017-02-14] MEDS: ACETAMINOPHEN 325 MG TAB PO SCH ×2 (13:55→17:30)
--- NOTE | 2017-02-14 14:05 | GOP ---
[f rep st] OPERATIVE REPORT DATE OF OPERATION: 02/14/2017 SURGEON: Thomas Oneil MD LOCAL HAZMAT DRIVER: ORALIA Roman and Nicho Grady CFA ANESTHESIA: General. ANESTHESIOLOGIST: Elmer Vasquez MD PREOPERATIVE DIAGNOSIS: Left hip severe degenerative arthritis. POSTOPERATIVE DIAGNOSIS: Left hip severe degenerative arthritis. PROCEDURE PERFORMED: Left total hip arthroplasty, ceramic femoral head on highly cross-linked polyet hylene cup liner. FINDINGS: ESTIMATED BLOOD LOSS: Was about 300 mL. DESCRIPTION OF PROCEDURE: The patient was given 2 g of IV Ancef preoperatively within 60 minutes of surgery. She also received IV tranexamic acid at a dose of 20 mg/kg. She was placed on the operatin g room table and given general anesthesia by Dr. Vasquez. She had had previous extensive lumbar spine surgery and a spinal anesthetic was not possible. A Alejandre catheter was not used. She wore a KEIKO st ocking and SCD on the nonoperative leg. She was rolled to the right lateral decubitus position. The position was secured with the pegboard table attachment. An axillary roll was used, and all pressur e points were carefully padded. I was careful to lock her pelvis in a rigid vertical position. Her perineum was isolated with plastic adhesive drapes. Her left hip and left lower extremity were prepp ed with ChloraPrep. They were draped free using sterile sheets, stockinette, and Ioban plastic drape s. The World Health Organization time-out was performed to verify the correct surgical side and the [facility] patient identity. The [place] time-out was also performed. I made a 5-inch straight oblique posterolateral hip skin incision. Subcutaneous tissues were sharply divided, and hemostasis was obtained using electrocautery. She had a deep layer of subcutaneous fat . Her fascia hung was identified and split along the axis of its fibers at its proximal end. I then curved posteriorly and proximally, and split the fascia of the gluteus huber and bluntly split the muscle fibers in line with their orientation. The [place]ley self-retaining retractor was inserted. Her sciatic nerve was located, partially exposed, and protected throughout the procedure. The tram operator al rotators and the posterior hip capsule were divided as separate layers at the base of the femoral neck, tagged, and reflected posteriorly. A smooth 8-inch Steinmann pin was inserted vertically into the ilium, superior to the acetabulum. An 8-inch drill bit was inserted vertically into the greater trochanter and parallel to the first pin. The distance between the 2 was measured for leg length ref erence. Her femoral head was dislocated posteriorly. Severe degenerative changes were present on he r femoral head. It was significantly flattened. Her femoral neck was osteotomized at the appropriat e level and inclination. I was careful to preserve all the posterior capsule and most of the anterior capsule. The remnant of her damaged labrum was excised. I prepared the femur first. This allowed me to turnaround planner the amount of natural femoral neck anteversion. This, in turn, allowed me to later determine the correct amount of cup anteversion. She had approx imately 15 degrees of natural femoral neck anteversion. The canal was opened laterally with a box ch domitila. Following the starter reamer, I hand broached sequentially up to a size 7. The size 7 broach was used as a trial stem. I was careful to lateralize adequately. I was using a high offset stem. Appropriate retractors were inserted to expose her acetabulum. The acetabulum was reamed sequentiall y up to 51 mm. I selected a 52 mm Vidhya Tritanium solid-backed hemispherical shell. This was micheal ed securely into place in the proper degree of inclination and anteversion. I used the transverse ac etabular ligament and other acetabular landmarks to help me properly orient the cup. Fixation was se cure and I did not think supplemental screw fixation was necessary. I inserted a screw-in metal dome hole plug. I performed a series of trial reductions to determine length and stability. She was about 8 or 10 mm short preoperatively, and I was intentionally lengthening her. I concluded that the size 7 stem wit h a high offset and a +4 mm neck with a 32 mm head and a 0 degree trial liner, gave me the proper com bination of appropriate lengthening and good anterior and posterior stability. The 0 degree, or flush, Vidhya X3 highly cross-linked polyethylene liner was inserted and tapped sec urely into place. I chose the [place] Accolate II stem with a high offset in size 7. This was inser keiko, press-fit and was very tight. I did one final trial reduction and confirmed that the +4 mm neck length with a 32 mm head was the proper combination. The [place] Biolox Delta ceramic head with an outside diameter of 32 mm and a neck length of +4 mm was tapped securely onto the clean trunnion. He r acetabulum was irrigated, cleaned, and the hip was reduced 1 final time. She had excellent anterio r and posterior stability and appropriate lengthening. She had some posterior inferior osteophytes which I removed with an osteotome and rongeur. Then, 40 mL of the joint anesthetic cocktail were injected into the capsule, the deep musculature, an d the subcutaneous tissues around the skin edges. The joint was thoroughly irrigated 1 final time wi th a dilute Betadine solution. Her sciatic nerve was reinspected and looked unharmed. The external rotators and the posterior hip capsule were repaired in separate layers with #2 FiberWire sutures thr ough drill holes in the greater trochanter. This provided a strong posterior capsular and external r otator repair. Her fascia hung was closed first with a couple of interrupted [id number] 0 PDS s utures, followed by a running #2 barbed Ethicon Stratafix PDO suture. The subcutaneous tissues were closed with a running 0 barbed Ethicon Stratafix Monoderm suture. The skin was closed with a running 3-0 barbed Ethicon Stratafix Monoderm subcuticular suture. The skin edges were reapproximated and s ealed with Dermabond glue. The wound was covered with a sterile Mepilex dressing. A long-leg KEIKO stocking and SCD were applied to her left lower extremity. She wore a stocking and SC D on the opposite leg during the procedure. An abduction pillow was placed between her knees. She w as awakened from anesthesia and rolled to the supine position on her [facility]. She was taken to PACU in satisfactory condition. There were no recognized intraoperative complications. COUNTS: The sponge and needle count were correct on 2 occasions. IMPLANTS: I used a [place] Tritanium hemispherical solid-backed acetabular shell with an outside sandie meter of 52 mm. The liner was a [place] X3 0-degree highly cross-linked liner with an inside diamete r of 32 mm. The femoral component was a high offset Vidhya Accolade II stem in size 7 and press-fit . The femoral head was a Vidhya Biolox Delta ceramic head with a +4 mm neck length and a 32 mm outs rowdy diameter. Yaya Mcdermott and Nicho Grady acted as surgical assistants. Their assistance was a medical necess ity for safe completion of the procedure. /[id number]/MODL
--- NOTE | 2017-02-14 14:05 | GOP ---
[f rep st] OPERATIVE REPORT DATE OF OPERATION: 02/14/2017 SURGEON: Thomas Oneil MD FLORAL ARRANGER: ORALIA Roman and Nicho Grady CFA ANESTHESIA: General. ANESTHESIOLOGIST: Elmer Vasquez MD PREOPERATIVE DIAGNOSIS: Left hip severe degenerative arthritis. POSTOPERATIVE DIAGNOSIS: Left hip severe degenerative arthritis. PROCEDURE PERFORMED: Left total hip arthroplasty, ceramic femoral head on highly cross-linked polyet hylene cup liner. FINDINGS: ESTIMATED BLOOD LOSS: Was about 300 mL. DESCRIPTION OF PROCEDURE: The patient was given 2 g of IV Ancef preoperatively within 60 minutes of surgery. She also received IV tranexamic acid at a dose of 20 mg/kg. She was placed on the operatin g room table and given general anesthesia by Dr. Vasquez. She had had previous extensive lumbar spine surgery and a spinal anesthetic was not possible. A Alejandre catheter was not used. She wore a KEIKO st ocking and SCD on the nonoperative leg. She was rolled to the right lateral decubitus position. The position was secured with the pegboard table attachment. An axillary roll was used, and all pressur e points were carefully padded. I was careful to lock her pelvis in a rigid vertical position. Her perineum was isolated with plastic adhesive drapes. Her left hip and left lower extremity were prepp ed with ChloraPrep. They were draped free using sterile sheets, stockinette, and Ioban plastic drape s. The World Health Organization time-out was performed to verify the correct surgical side and the [facility] patient identity. The [place] time-out was also performed. I made a 5-inch straight oblique posterolateral hip skin incision. Subcutaneous tissues were sharply divided, and hemostasis was obtained using electrocautery. She had a deep layer of subcutaneous fat . Her fascia hung was identified and split along the axis of its fibers at its proximal end. I then curved posteriorly and proximally, and split the fascia of the gluteus huber and bluntly split the muscle fibers in line with their orientation. The Charnley self-retaining retractor was inserted. Her sciatic nerve was located, partially exposed, and protected throughout the procedure. The transmission engineer al rotators and the posterior hip capsule were divided as separate layers at the base of the femoral neck, tagged, and reflected posteriorly. A smooth 8-inch Steinmann pin was inserted vertically into the ilium, superior to the acetabulum. An 8-inch drill bit was inserted vertically into the greater trochanter and parallel to the first pin. The distance between the 2 was measured for leg length ref erence. Her femoral head was dislocated posteriorly. Severe degenerative changes were present on he r femoral head. It was significantly flattened. Her femoral neck was osteotomized at the appropriat e level and inclination. I was careful to preserve all the posterior capsule and most of the anterior capsule. The remnant of her damaged labrum was excised. I prepared the femur first. This allowed me to alternative dispute resolution mediator the amount of natural femoral neck anteversion. This, in turn, allowed me to later determine the correct amount of cup anteversion. She had approx imately 15 degrees of natural femoral neck anteversion. The canal was opened laterally with a box ch domitila. Following the starter reamer, I hand broached sequentially up to a size 7. The size 7 broach was used as a trial stem. I was careful to lateralize adequately. I was using a high offset stem. Appropriate retractors were inserted to expose her acetabulum. The acetabulum was reamed sequentiall y up to 51 mm. I selected a 52 mm Vidhya Tritanium solid-backed hemispherical shell. This was micheal ed securely into place in the proper degree of inclination and anteversion. I used the transverse ac etabular ligament and other acetabular landmarks to help me properly orient the cup. Fixation was se cure and I did not think supplemental screw fixation was necessary. I inserted a screw-in metal dome hole plug. I performed a series of trial reductions to determine length and stability. She was about 8 or 10 mm short preoperatively, and I was intentionally lengthening her. I concluded that the size 7 stem wit h a high offset and a +4 mm neck with a 32 mm head and a 0 degree trial liner, gave me the proper com bination of appropriate lengthening and good anterior and posterior stability. The 0 degree, or flush, Vidhya X3 highly cross-linked polyethylene liner was inserted and tapped sec urely into place. I chose the [place] Accolate II stem with a high offset in size 7. This was inser keiko, press-fit and was very tight. I did one final trial reduction and confirmed that the +4 mm neck length with a 32 mm head was the proper combination. The [place] Biolox Delta ceramic head with an outside diameter of 32 mm and a neck length of +4 mm was tapped securely onto the clean trunnion. He r acetabulum was irrigated, cleaned, and the hip was reduced 1 final time. She had excellent anterio r and posterior stability and appropriate lengthening. She had some posterior inferior osteophytes which I removed with an osteotome and rongeur. Then, 40 mL of the joint anesthetic cocktail were injected into the capsule, the deep musculature, an d the subcutaneous tissues around the skin edges. The joint was thoroughly irrigated 1 final time wi th a dilute Betadine solution. Her sciatic nerve was reinspected and looked unharmed. The external rotators and the posterior hip capsule were repaired in separate layers with #2 FiberWire sutures thr ough drill holes in the greater trochanter. This provided a strong posterior capsular and external r otator repair. Her fascia hung was closed first with a couple of interrupted [id number] 0 PDS s utures, followed by a running #2 barbed Ethicon Stratafix PDO suture. The subcutaneous tissues were closed with a running 0 barbed Ethicon Stratafix Monoderm suture. The skin was closed with a running 3-0 barbed Ethicon Stratafix Monoderm subcuticular suture. The skin edges were reapproximated and s ealed with Dermabond glue. The wound was covered with a sterile Mepilex dressing. A long-leg KEIKO stocking and SCD were applied to her left lower extremity. She wore a stocking and SC D on the opposite leg during the procedure. An abduction pillow was placed between her knees. She w as awakened from anesthesia and rolled to the supine position on her [facility]. She was taken to PACU in satisfactory condition. There were no recognized intraoperative complications. COUNTS: The sponge and needle count were correct on 2 occasions. IMPLANTS: I used a [place] Tritanium hemispherical solid-backed acetabular shell with an outside sandie meter of 52 mm. The liner was a [place] X3 0-degree highly cross-linked liner with an inside diamete r of 32 mm. The femoral component was a high offset Vidhya Accolade II stem in size 7 and press-fit . The femoral head was a Vidhya Biolox Delta ceramic head with a +4 mm neck length and a 32 mm outs rowdy diameter. Yaya Mcdermott and Nicho Grady acted as surgical assistants. Their assistance was a medical necess ity for safe completion of the procedure. /[id number]/MODL
--- NOTE | 2017-02-14 14:05 | GOP ---
[f rep st] OPERATIVE REPORT DATE OF OPERATION: 02/14/2017 SURGEON: Thomas Oneil MD CONNECTION WORKER: ORALIA Roman and Nicho Grady CFA ANESTHESIA: General. ANESTHESIOLOGIST: Elmer Vasquez MD PREOPERATIVE DIAGNOSIS: Left hip severe degenerative arthritis. POSTOPERATIVE DIAGNOSIS: Left hip severe degenerative arthritis. PROCEDURE PERFORMED: Left total hip arthroplasty, ceramic femoral head on highly cross-linked polyet hylene cup liner. FINDINGS: ESTIMATED BLOOD LOSS: Was about 300 mL. DESCRIPTION OF PROCEDURE: The patient was given 2 g of IV Ancef preoperatively within 60 minutes of surgery. She also received IV tranexamic acid at a dose of 20 mg/kg. She was placed on the operatin g room table and given general anesthesia by Dr. Vasquez. She had had previous extensive lumbar spine surgery and a spinal anesthetic was not possible. A Aleajndre catheter was not used. She wore a KEIKO st ocking and SCD on the nonoperative leg. She was rolled to the right lateral decubitus position. The position was secured with the pegboard table attachment. An axillary roll was used, and all pressur e points were carefully padded. I was careful to lock her pelvis in a rigid vertical position. Her perineum was isolated with plastic adhesive drapes. Her left hip and left lower extremity were prepp ed with ChloraPrep. They were draped free using sterile sheets, stockinette, and Ioban plastic drape s. The World Health Organization time-out was performed to verify the correct surgical side and the [facility] patient identity. The Dorothy time-out was also performed. I made a 5-inch straight oblique posterolateral hip skin incision. Subcutaneous tissues were sharply divided, and hemostasis was obtained using electrocautery. She had a deep layer of subcutaneous fat . Her fascia hung was identified and split along the axis of its fibers at its proximal end. I then curved posteriorly and proximally, and split the fascia of the gluteus huber and bluntly split the muscle fibers in line with their orientation. The Charnley self-retaining retractor was inserted. Her sciatic nerve was located, partially exposed, and protected throughout the procedure. The fiberglass machine operator al rotators and the posterior hip capsule were divided as separate layers at the base of the femoral neck, tagged, and reflected posteriorly. A smooth 8-inch Steinmann pin was inserted vertically into the ilium, superior to the acetabulum. An 8-inch drill bit was inserted vertically into the greater trochanter and parallel to the first pin. The distance between the 2 was measured for leg length ref erence. Her femoral head was dislocated posteriorly. Severe degenerative changes were present on he r femoral head. It was significantly flattened. Her femoral neck was osteotomized at the appropriat e level and inclination. I was careful to preserve all the posterior capsule and most of the anterior capsule. The remnant of her damaged labrum was excised. I prepared the femur first. This allowed me to biomass power plant superintendent the amount of natural femoral neck anteversion. This, in turn, allowed me to later determine the correct amount of cup anteversion. She had approx imately 15 degrees of natural femoral neck anteversion. The canal was opened laterally with a box ch domitila. Following the starter reamer, I hand broached sequentially up to a size 7. The size 7 broach was used as a trial stem. I was careful to lateralize adequately. I was using a high offset stem. Appropriate retractors were inserted to expose her acetabulum. The acetabulum was reamed sequentiall y up to 51 mm. I selected a 52 mm Vidhya Tritanium solid-backed hemispherical shell. This was micheal ed securely into place in the proper degree of inclination and anteversion. I used the transverse ac etabular ligament and other acetabular landmarks to help me properly orient the cup. Fixation was se cure and I did not think supplemental screw fixation was necessary. I inserted a screw-in metal dome hole plug. I performed a series of trial reductions to determine length and stability. She was about 8 or 10 mm short preoperatively, and I was intentionally lengthening her. I concluded that the size 7 stem wit h a high offset and a +4 mm neck with a 32 mm head and a 0 degree trial liner, gave me the proper com bination of appropriate lengthening and good anterior and posterior stability. The 0 degree, or flush, Vidhya X3 highly cross-linked polyethylene liner was inserted and tapped sec urely into place. I chose the Weldona Accolate II stem with a high offset in size 7. This was inser keiko, press-fit and was very tight. I did one final trial reduction and confirmed that the +4 mm neck length with a 32 mm head was the proper combination. The [place] Biolox Delta ceramic head with an outside diameter of 32 mm and a neck length of +4 mm was tapped securely onto the clean trunnion. He r acetabulum was irrigated, cleaned, and the hip was reduced 1 final time. She had excellent anterio r and posterior stability and appropriate lengthening. She had some posterior inferior osteophytes which I removed with an osteotome and rongeur. Then, 40 mL of the joint anesthetic cocktail were injected into the capsule, the deep musculature, an d the subcutaneous tissues around the skin edges. The joint was thoroughly irrigated 1 final time wi th a dilute Betadine solution. Her sciatic nerve was reinspected and looked unharmed. The external rotators and the posterior hip capsule were repaired in separate layers with #2 FiberWire sutures thr ough drill holes in the greater trochanter. This provided a strong posterior capsular and external r otator repair. Her fascia hung was closed first with a couple of interrupted [id number] 0 PDS s utures, followed by a running #2 barbed Ethicon Stratafix PDO suture. The subcutaneous tissues were closed with a running 0 barbed Ethicon Stratafix Monoderm suture. The skin was closed with a running 3-0 barbed Ethicon Stratafix Monoderm subcuticular suture. The skin edges were reapproximated and s ealed with Dermabond glue. The wound was covered with a sterile Mepilex dressing. A long-leg KEIKO stocking and SCD were applied to her left lower extremity. She wore a stocking and SC D on the opposite leg during the procedure. An abduction pillow was placed between her knees. She w as awakened from anesthesia and rolled to the supine position on her [facility]. She was taken to PACU in satisfactory condition. There were no recognized intraoperative complications. COUNTS: The sponge and needle count were correct on 2 occasions. IMPLANTS: I used a Weldona Tritanium hemispherical solid-backed acetabular shell with an outside sandie meter of 52 mm. The liner was a Weldona X3 0-degree highly cross-linked liner with an inside diamete r of 32 mm. The femoral component was a high offset Vidhya Accolade II stem in size 7 and press-fit . The femoral head was a Vidhya Biolox Delta ceramic head with a +4 mm neck length and a 32 mm outs rowdy diameter. Yaya Mcdermott and Nicho Grady acted as surgical assistants. Their assistance was a medical necess ity for safe completion of the procedure. /[id number]/MODL
[2017-02-14 16:06] VITALS: RESP 16
[2017-02-14] MEDS: ceFAZolin 2 GM/DEXTROSE 100 ML IV SCH (17:30)
[2017-02-14] MEDS: SENNOSIDES/DOCUSATE SODIUM TAB PO SCH (20:14)
[2017-02-14] MEDS: FAMOTIDINE 20 MG TAB PO SCH (20:15)
[2017-02-14] MEDS: traMADol 50 MG TAB PO PRN (21:48)
[2017-02-14] MEDS: CYCLOBENZAPRINE 10 MG TAB PO PRN (21:49)
[2017-02-14] MEDS: ASPIRIN 325 MG TAB PO SCH (21:50)
[2017-02-15] MEDS: ACETAMINOPHEN 325 MG TAB PO SCH ×3 (01:30→12:04)
[2017-02-15] MEDS: ceFAZolin 2 GM/DEXTROSE 100 ML IV SCH (01:31)
[2017-02-15] MEDS: traMADol 50 MG TAB PO PRN ×2 (04:36→12:05)
[2017-02-15] MEDS: CYCLOBENZAPRINE 10 MG TAB PO PRN (06:15)
[2017-02-15 08:16] VITALS: BP 97/76; PULSE 77; TEMP 98.2
[2017-02-15] MEDS ORDERED: FERROUS SULFATE 140 MG TAB.ER PO SCH (09:00)
[2017-02-15] MEDS ORDERED: DULoxetine 60 MG CAP PO SCH (09:00)
[2017-02-15] MEDS: ASPIRIN 325 MG TAB PO SCH (09:33)
[2017-02-15] MEDS: FAMOTIDINE 20 MG TAB PO SCH (09:33)
[2017-02-15] MEDS: SENNOSIDES/DOCUSATE SODIUM TAB PO SCH (09:34)
--- NOTE | 2017-02-15 09:57 | SOAPPROG ---
SOAP Progress Note Assessment/Plan: Assessment: Afebrile. Awake and alert. She has been walking in the room and short distances in the thomas. Her dressing is dry. Sciatic nerve intact. Postop films look excellent. Hemoglobin hematocrit are adequate. Plan: Continue physical therapy today. Discharge later today. 02/15/17 09:56 Objective: Vital Signs Temp Pulse Resp BP Pulse Ox 36.8 C 77 16 97/76 L 96 02/15/17 08:15 02/15/17 08:15 02/15/17 08:15 02/15/17 08:15 02/15/17 08:15 Laboratory Results 02/15/17 05:11 02/14/17 02/15/17 02/16/17 05:59 05:59 05:59 Intake Total 950 Output Total 700 Balance 250 ICD10 Worksheet Patient Problems: Problems Problem Status Onset Osteoarthritis of left hip Acute Wound infection complicating hardware Acute
--- NOTE | 2017-02-15 10:13 | GDS ---
[f rep st] DISCHARGE SUMMARY ADMISSION DIAGNOSIS: Left hip arthritis. DISCHARGE DIAGNOSIS: Left hip arthritis. OPERATION PERFORMED: 02/14/2017, left total hip arthroplasty. POSTOPERATIVE COMPLICATIONS: None. CONDITION ON DISCHARGE: Improved. DESCRIPTION OF HOSPITAL COURSE: The patient was admitted to the hospital on the morning of surgery. Her admission CBC, electrolytes, BUN, and creatinine were all normal. The same day, under general a nesthesia, she underwent a left total hip arthroplasty. Postoperatively, she was treated with multim odal DVT prophylaxis, including aspirin and early mobilization. On the first postoperative day, her hemoglobin and hematocrit were 11.5 and 35.8. She was seen by Physical Therapy and made good progres s with ambulation and stairs. By the time of discharge, she was afebrile and was independent walking with a walker. DISPOSITION: Patient discharged to her home. She will go to outpatient physical therapy. Continue KEIKO stockings for 1 week. Use an abduction pillow in bed for 3 weeks. Continue aspirin 325 mg p.o. daily for 21 days. She has prescriptions for oxycodone and tramadol for pain control. I will see he r back in the office on 03/06/2017. If there are any problems, she is to call me at the office. /[id number]/MODL
--- NOTE | 2017-02-15 11:29 | PDIAF ---
- Diagnosis Diagnosis: hip OA Code Status: Full Code - Medication Management Discharge Medications: Medications to Continue on Transfer DULoxetine [Cymbalta 60 MG (*)] 60 mg PO DAILY #0 09/28/16 [Last Taken 02/14/17] Cholecalciferol Vit D3 [Vitamin D3 (*)] 5,000 units PO DAILY 11/10/16 [Last Taken 02/06/17] Acetaminophen [Tylenol 325mg (*)] 650 mg PO Q6HRS tab 02/15/17 [Last Taken Unknown] Aspirin [Aspirin 325 mg (*)] 325 mg PO DAILY tab 02/15/17 [Last Taken Unknown] Ferrous Sulfate [Slow Fe 140 MG (*)] 140 mg PO DAILY tab.er 02/15/17 [Last Taken Unknown] Ondansetron Odt [Zofran Odt 4 mg (*)] 4 mg PO Q4HRS PRN #15 tab 02/15/17 [Last Taken Unknown] Sennosides/Docusate Sodium [Senokot-S] 1 - 2 tab PO BID tab 02/15/17 [Last Taken Unknown] oxyCODONE IR [Oxycodone Ir (*)] 5 - 10 mg PO Q3HRS PRN #30 tab 02/15/17 [Last Taken Unknown] traMADol [Ultram 50 mg (*)] 50 mg PO Q6HRS PRN #30 tab 02/15/17 [Last Taken Unknown] Discharge Medications: Refer to the Discharge Home Medication list for PRN reason. PICC Care - Routine: N/A - Orders Services needed: Home Care, Physical Therapy Home Care Face to Face: I certify that this patient was under my care and that I had the required [id number] encounter meeting the encounter requirements on the discharge day. My findings support the fact that the patient is homebound as defined in Home Care Face to Face Continued: CMS Chapter 7 Medicare Benefits Manual 30.1.1 , The condition of the patient is such that there exists a normal inability to leave home and consequently, leaving home would require a considerable and taxing effort. Diet Recommendation: no restrictions on diet Diet Texture: Regular Texture Diet Alejandre: Not applicable Allen Stockings Discontinue Date: 1 week Wound Care Instructions: keep clean and dry. You may shower. Activity/Weight Bearing Restrictions: as tolerated. - Follow Up Care Current Providers and Referrals: Thomas Oneil MD [Medical Doctor] - 03/06/17 Yuni Jackson MD [Primary Care Provider] -
[2017-02-15 15:15] VITALS: O2SAT 94
--- NOTE | 2017-02-15 15:22 | ASMTCMCOM ---
CM Note CM Note Notes: Pt medically stable for d/c. Pt requests [facility], [facility]. Orders sent in [employer]. Date Signed: 02/15/2017 03:21 PM Electronically Signed By:EMERSON Schmitz
--- NOTE | 2017-02-15 16:25 | ASDISCHSUM ---
Discharge Information Plan Status:Home with Home Health Medically Cleared to Leave: Discharge Date:02/15/2017 03:50 PM CM D/C Disposition:Home Health Service ADT D/C Disposition:Home Health Service Projected Discharge Date:02/15/2017 11:00 AM Transportation at D/C: Discharge Delay Reason: Follow-Up Date:02/15/2017 11:00 AM Discharge Slot: Final Diagnosis: Placement Information Referral Type:*Home Health Care Services Referral ID:[id number] Provider Name:Placido Saha Address 1:[address] [place] Phone Number: Address 2: Fax Number: City:[place] Selection Factors: State:[place] Patient Contact Information Contact Name:CLARENCE Relationship: Address:[address] [place] [address] City:[facility] Phone: State/Zip Code:[place] [address] Email: Financial Information Financial Class: Primary Plan Desc:MEDICARE INPATIENT Primary Plan Number:[id number] Secondary Plan Desc:AARP/MDR SUPPLEMENT Secondary Plan Number:[id number] Assessment Information CM Wildlife Conservation Professor Assessment CJR Did you go to joint Answers: No (why?) Notes: "Not class? necessary" -- sending online video link via email CM Note CM Note Notes: Susannah is planning to discharge home independent of CM accommodations. She has a good support system at home able to care for her and take her to outpatient therapies. Susannah did not attend the Joint Class, so I am sending her the online video link. Date Signed: 02/09/2017 12:18 PM Electronically Signed By:Blanca Cooper [facility] CM Progress Note CM Note CM Note Notes: Pt medically stable for d/c. Pt requests [facility], [facility] accepts. Orders sent in [employer]. Date Signed: 02/15/2017 03:21 PM Electronically Signed By:EMERSON Schmitz Intervention Information
--- NOTE | 2017-02-15 16:25 | ASDISCHSUM ---
Discharge Information Plan Status:Home with Home Health Medically Cleared to Leave: Discharge Date:02/15/2017 03:50 PM CM D/C Disposition:Home Health Service ADT D/C Disposition:Home Health Service Projected Discharge Date:02/15/2017 11:00 AM Transportation at D/C: Discharge Delay Reason: Follow-Up Date:02/15/2017 11:00 AM Discharge Slot: Final Diagnosis: Placement Information Referral Type:*Home Health Care Services Referral ID:[id number] Provider Name:Placido Saha Address 1:[address] [place] Phone Number: Address 2: Fax Number: City:[place] Selection Factors: State:[place] Patient Contact Information Contact Name:CLARENCE Relationship: Address:[address] [place] [address] City:[facility] Phone: State/Zip Code:[place] [address] Email: Financial Information Financial Class: Primary Plan Desc:MEDICARE INPATIENT Primary Plan Number:[id number] Secondary Plan Desc:AARP/MDR SUPPLEMENT Secondary Plan Number:[id number] Assessment Information CM Operations Liaison Assessment CJR Did you go to joint Answers: No (why?) Notes: "Not class? necessary" -- sending online video link via email CM Note CM Note Notes: Susannah is planning to discharge home independent of CM accommodations. She has a good support system at home able to care for her and take her to outpatient therapies. Susannah did not attend the Joint Class, so I am sending her the online video link. Date Signed: 02/09/2017 12:18 PM Electronically Signed By:Blanca Cooper [facility] CM Progress Note CM Note CM Note Notes: Pt medically stable for d/c. Pt requests [facility], [facility] accepts. Orders sent in [employer]. Date Signed: 02/15/2017 03:21 PM Electronically Signed By:EMERSON Schmitz Intervention Information
--- NOTE | 2017-02-15 16:25 | ASDISCHSUM ---
Discharge Information Plan Status:Home with Home Health Medically Cleared to Leave: Discharge Date:02/15/2017 03:50 PM CM D/C Disposition:Home Health Service ADT D/C Disposition:Home Health Service Projected Discharge Date:02/15/2017 11:00 AM Transportation at D/C: Discharge Delay Reason: Follow-Up Date:02/15/2017 11:00 AM Discharge Slot: Final Diagnosis: Placement Information Referral Type:*Home Health Care Services Referral ID:[id number] Provider Name:Placido Saha Address 1:[address] [place] Phone Number: Address 2: Fax Number: City:[place] Selection Factors: State:[place] Patient Contact Information Contact Name:CLARENCE Relationship: Address:[address] [place] [address] City:[facility] Phone: State/Zip Code:[place] [address] Email: Financial Information Financial Class: Primary Plan Desc:MEDICARE INPATIENT Primary Plan Number:[id number] Secondary Plan Desc:AARP/MDR SUPPLEMENT Secondary Plan Number:[id number] Assessment Information CM Clinical Education Academic Coordinator Assessment CJR Did you go to joint Answers: No (why?) Notes: "Not class? necessary" -- sending online video link via email CM Note CM Note Notes: Susannah is planning to discharge home independent of CM accommodations. She has a good support system at home able to care for her and take her to outpatient therapies. Susannah did not attend the Joint Class, so I am sending her the online video link. Date Signed: 02/09/2017 12:18 PM Electronically Signed By:Blanca Cooper [facility] CM Progress Note CM Note CM Note Notes: Pt medically stable for d/c. Pt requests [facility], [facility] accepts. Orders sent in All[employer]. Date Signed: 02/15/2017 03:21 PM Electronically Signed By:EMERSON Schmitz Intervention Information
== END 2017-02-15 15:50 | disposition home health service (06) | DRG 470 ==
LOC: F3N 07:59
PROVIDERS: ADMIT Orthopaedic Surgery; ATTEND Orthopaedic Surgery
PROC: 0SRB04Z Replacement of Left Hip Joint with Ceramic on Polyethylene Synthetic Substitute, Open Approach (ICD-10-PCS; principal; 2017-02-14 09:45)
DX: M16.12 Unilateral primary osteoarthritis, left hip (principal); Z87.891 Personal history of nicotine dependence
CPT/HCPCS: 97110-GP; 97116-GP; 97161-GP; 97165-GO; 97530-GP; 97535-GO; G8978-GP-CJ; G8979-GP-CI; G8980-GP-CI; G8987-GO-CJ; G8988-GO-CI; J0171; J0690; J1100; J1170; J1885; J2250; J2704; J2795; J3010